=== PATIENT | male | born 1970 | race Two or more races ===

== ENCOUNTER 2024-11-01 21:35 | Emergency (ER) | payer OTHER, SELFPAY ==
[2024-11-01 21:36] VITALS: BMI 71.7
[2024-11-01 21:52] VITALS: BP 118/72; PULSE 108; RESP 19; TEMP 37.4; O2SAT 97
[2024-11-02] MEDS: FLUORESCEIN SOD 1 MG STRP RIGHT EYE (01:39)
[2024-11-02] MEDS: TETRACAINE PF OP SOL 0.5% 4 ML DRPETTE 1 DROP RIGHT EYE (01:40)
--- NOTE | 2024-11-02 01:45 | PD.EDEYE ---
ED Eye Problem RME/HPI General Chief complaint: Eye Problems Stated complaint: EYE PAIN Time Seen by Provider: 11/01/24 22:49 Arrival date/time: 11/01/24 21:35 This is a case of a 54-year-old male who came in the emergency room due to left eye irritation and redness history of present illness started 10 days prior to arrival in the emergency room when the patient started to have left eye redness and discharge patient had TeleMed consult and was given a IV antibiotic patient states that for few days it get improved but started to become worse today thus patient decided to sought consult here in the emergency room denies any eye pain denies any blurring of vision denies any injury or trauma Limitations: no limitations Related Data Previous Rx's ?Medication ?Instructions ?Recorded ibuprofen 600 mg tablet 600 mg PO TID #30 tabs 07/05/17 cephalexin 500 mg capsule 500 mg PO QID #40 caps 11/02/24 ofloxacin 0.3 % eye drops 1 drp ophthalmic (eye) QID 10 days 11/02/24 #10 mL Allergies Allergy/AdvReac Type Severity Reaction Status Date / Time No Known Allergies Allergy Verified 11/01/24 21:40 Review of Systems Review of Systems Systems Reviewed: All systems reviewed, normal except as documented Constitutional Constitutional: Reports system reviewed and no additional complaints, except as documented and Reports as per HPI Eyes Eyes: Reports system reviewed and no additional complaints, except as documented, Reports as per HPI, Denies blind spots, Denies blurry vision, Denies change in vision, Denies decreased night vision, Denies diplopia, Reports eye discharge, Denies dry eyes, Denies exophthalmos, Denies floaters, Reports irritation, Denies itchy eyes, Denies loss of peripheral vision, Denies loss of vision, Denies other visual disturbances, Denies eye pain, Denies photophobia, Denies requires corrective lenses, Denies seeing flashes, Denies spots in vision and Denies tunnel vision Cardiovascular Cardiovascular: Reports system reviewed and no additional complaints, except as documented and Reports as per HPI Respiratory Respiratory: Reports system reviewed and no additional complaints, except as documented and Reports as per HPI Gastrointestinal Gastrointestinal: Reports system reviewed and no additional complaints, except as documented and Reports as per HPI Musculoskeletal Musculoskeletal: Reports system reviewed and no additional complaints, except as documented and Reports as per HPI Integumentary/Breasts Skin/Breast: Reports system reviewed and no additional complaints, except as documented and Reports as per HPI Neurologic Neurologic: Reports system reviewed and no additional complaints, except as documented, Reports as per HPI and Denies loss of vision Allergic/Immunologic Allergic/Immunologic: Denies itchy eyes Past Medical History Past Medical History CARDIAC: Positive Hypertension (NO MEDS); Negative Congestive Heart Failure RESPIRATORY: Negative Chronic Obstructive Pulmonary Disease (COPD) GENITOURINARY: Negative Renal Disease ENDOCRINE: Negative Diabetes Mellitus Type 1 or Diabetes Mellitus Type 2 Family History FAMILY HISTORY: Positive Family Cardiac Disorders Social History SMOKING STATUS: Current every day smoker ED Exam General Limitations: Present no limitations General appearance: Present alert and in no apparent distress; Absent appears intoxicated, anxious, lethargic, obtunded, in distress, obese or cachectic Head Head exam: Present atraumatic Eye Eye exam: Present normal appearance, PERRL, EOMI and other (perrl eom intact no pappiledema no hyphema left conjunctiave redness sclera normal both upper and lower eyelid normal no redness no dc non tenden no corneal abrasion 9 oclocl position no corneal edema no ulcer no siedel sign no foeign body noted) ENT ENT exam: Present normal exam, normal oropharynx and mucous membranes moist Neck Neck exam: Present normal inspection, full ROM and trachea midline Chest Chest inspection: Present normal inspection and symmetric chest wall rise Respiratory Respiratory exam: Present normal lung sounds bilaterally Cardiovascular Cardiovascular exam: Present regular rate, normal rhythm and normal heart sounds Abdominal Exam Abdominal exam: Present soft and normal bowel sounds Extremities Exam Extremities exam: Present normal inspection and full ROM Back Exam Back exam: Present normal inspection and full ROM Neurological Exam Neurological exam: Present alert, oriented X3, CN II-XII intact, normal gait and reflexes normal; Absent motor sensory deficit Psychiatric Psychiatric exam: Present normal affect and normal mood Skin Skin exam: Present warm, dry, intact and normal color Course Quality Measures none Orders Category Date Time Status Erythromycin Op Oint 0.5% Med 11/02/24 01:39 Discontinued 1 gm LEFT EYE X1 ONE Fluorescein Sodium [Bio-Deirdre] Med 11/02/24 01:05 Discontinued 1 mg RIGHT EYE X1 ONE TETRACAINE Op Mary Kate 0.5% [Pontocaine Op Mary Kate 0.5%] Med 11/02/24 01:05 Discontinued 1 drop RIGHT EYE X1 ONE Vital Signs Vital signs: Vital Signs Temperature 99.3 F 11/01/24 21:52 Pulse Rate 108 H 11/01/24 21:52 Respiratory Rate 19 11/01/24 21:52 Blood Pressure 118/72 11/01/24 21:52 Pulse Oximetry (%) 97 11/01/24 21:52 Oxygen Delivery Method Room Air 11/01/24 21:52 Oxygen saturation is 97% in room air Eye MDM Narrative MDM Narrative:: This is a case of a 54-year-old male who came in the emergency room due to left eye irritation and redness history of present illness started 10 days prior to arrival in the emergency room when the patient started to have left eye redness and discharge patient had TeleMed consult and was given a IV antibiotic patient states that for few days it get improved but started to become worse today thus patient decided to sought consult here in the emergency room denies any eye pain denies any blurring of vision denies any injury or trauma physical examination patient is awake alert oriented not in distress nontoxic looking left eyes show perrl eom intact no pappiledema no hyphema left conjunctiave redness sclera normal both upper and lower eyelid normal no redness no dc non tenden no corneal abrasion 9 oclocl position no corneal edema no ulcer no siedel sign no foeign body noted Patient was placed on a supine position patient agreed and give a consent verbally for eye exam visual acuity was normal done by me noted PERRL applied tetracaine to the left eye 2 drops with good anesthetic effect examined totally the left eye PERRL EOM intact normal conjunctiva no foreign body both left upper and lower eye were normal noted conjunctival redness sclera is normal apply fluorescein strip on the left eye noted a stain on the 9 o'clock position suggestive of corneal abrasion no corneal ulcer no corneal edema no Mihir sign patient tolerated well the procedure irrigate the left eye with 30 cc of normal saline to remove the stain patient examination was visualized by the Brito lamp patient tetanus shot is up-to-date I discussed the my findings with the patient the importance to see a security guard dispatcher for further evaluation of the left corneal abrasion was emphasized with the patient and the risks of not seeing the specialist was also discussed especially of loss of eyesight I cannot totally ruled out initially that the patient is having conjunctivitis thus patient will be also treated with left eye conjunctivitis Patient was given erythromycin ointment here in the emergency room and apply eye patch patient was prescribed ofloxacin and cephalexin patient understood very well for any worsening symptoms he needs to return to the emergency room immediately or call 911 Patient was discharged with comfortable condition walking with stable gait. Patient verbalized no further complains explained diagnosis and answered patient question. Patient is comfortable with the proposed management plan including the need to follow up with his/her primary care physician and any specialist if applicable Discussed patient for any urgent condition or worsening sx, He/She needed to go to emergency room immediately or call 911. Patient acknowledge the responsibility to follow up as instructed and to monitor her/his symptoms. For any persistence of the symptoms for more than 3-5 days return precaution advised. Discussed the result of the test and was given printed discharge instruction Patient data External records reviewed:: [facility] previous records Clinical information provided by:: patient Social determinants that could affect healthcare access:: none (None) Patient has the following chronic illnesses:: None How is presenting disease/condition affected by chronic disease/condition?: no chronic disease Evaluation data The following diagnostics were reviewed and interpreted by me:: other (specify) (None) Lab and/or radiology exams considered but not ordered:: None Interpretation Summary: None Medications / Prescriptions Medications or Prescriptions considered but not ordered:: Given Medication administrations:: Medication Administration History Discontinued Medications Erythromycin (Erythromycin Op Oint 0.5% 1 Gm Packet) 1 gm LEFT EYE X1 ONE Stop: 11/02/24 01:40 Fluorescein Sodium (Fluorescein Sod 1 Mg Strp) 1 mg RIGHT EYE X1 ONE Stop: 11/02/24 01:06 Last Admin: 11/02/24 01:39 Dose: 1 mg Documented By: APOLONIA Tetracaine HCl (Tetracaine Pf Op Mary Kate 0.5% 4 Ml Drpette) 1 drop RIGHT EYE X1 ONE Stop: 11/02/24 01:06 Last Admin: 11/02/24 01:40 Dose: 1 drop Documented By: APOLONIA Given Consultations Consultation(s) initiated? (list below): No Diagnosis Eye Problem Differential Diagnosis: corneal abrasion and conjunctivitis Most likely diagnosis given after review of the tests above:: Corneal abrasion conjunctivitis Admission Indicated Admission indicated?: not indicated Explain why admission is indicated or not indicated:: Not indicated Admission Request Was there a request for admission?: No Admission Attestation Admission request attestation: Not indicated Disposition Plan Disposition Plan: Discharge Discharge Attestation Discharge Attestation: The patient and all family members were given an opportunity to ask questions and understood the discharge instructions. Discharge instructions specifically effects, indications for sooner follow up or return to the emergency department, and the expected course of current diagnosis. Patient condition: Stable Discharge Plan Plan Patient Disposition: HOME (Self Care) Patient condition on transfer: Stable Prescriptions/Referrals Prescriptions/Med Rec: New ofloxacin 0.3 % drops 1 drp ophthalmic (eye) QID 10 Days Qty: 10 0RF cephalexin 500 mg capsule 500 mg PO QID Qty: 40 0RF No Action ibuprofen 600 mg tablet 600 mg PO TID Qty: 30 0RF Referrals: Miles August MD [Referring Provider] - 11/02/24 (Follow up for further evaluation and treatment of left corneal abrasion) Jimmie Foreman FNP [Emergency Midlevel Provider] - In 1 week Sasha Porter MD [Primary Care Provider] - In 1 week Problem List Clinical Impression: Corneal abrasion, left, Conjunctivitis Patient/Caregiver Discharge Instructions Education Materials: What Is Conjunctivitis?, ED Corneal Abrasion Additional Instructions: Follow-up with your primary care physician in 2 days for reevaluation and to be referred to security guard dispatcher for further evaluation and treatment of left corneal abrasion worsening symptoms or any emergent concerns such as blurring of vision headache call 911 or go to the nearest emergency room do not scratch your eyes apply the medication and take the medication as directed finish the course of antibiotic avoid eye strain keep the left eye with eye patch no driving no cell phone no watching TV is advised it is very important to see the security guard dispatcher into 2 days Print Language: Telugu Stand Alone Forms: Alessandra Award Info., Patient Portal Info Letter AMARILIS/DARON Supervising Physician AMARILIS/DARON Supervising Physician: dr smart
[2024-11-02] MEDS: Erythromycin Op Oint 0.5% 1 GM PACKET LEFT EYE (01:49)
== END 2024-11-02 01:55 | disposition home or self-care (01) ==
PROVIDERS: Emergency Provider Emergency Medicine; PCP Internal Medicine
DX: S05.02XA Injury of conjunctiva and corneal abrasion without foreign body, left eye, initial encounter (principal); H10.9 Unspecified conjunctivitis; X58.XXXA Exposure to other specified factors, initial encounter
CPT/HCPCS: 99282; A9270